=== PATIENT | female | born 1960 | race Caucasian/White ===

== ENCOUNTER 2024-07-31 06:49 | Day surgery (SDC) | payer MEDICAID, OTHER ==
[~2024-07-31] VITALS: Ht 170.2 cm; Wt 88.9 kg
[2024-07-31] MEDS ORDERED: MIDAZOLAM HCL 5 MG/5 ML VIAL ONE (08:03)
[2024-07-31] MEDS ORDERED: MEPERIDINE 100 MG INJ. 100 MG/ML VIAL ONE (08:03)
[2024-07-31] MEDS ORDERED: SIMETHICONE 40 MG/0.6 ML ML ONE (08:04)
[2024-07-31 14:17] VITALS: O2SAT 97
[2024-07-31 17:37] VITALS: BP_SYST 155; PULSE 68; RESP 18
== END 2024-07-31 10:35 | disposition home or self-care (01) ==
LOC: SDS 06:49 → SMU 06:50 → SDS 10:35
PROVIDERS: ATTEND Internal Medicine
DX: Z12.11 Encounter for screening for malignant neoplasm of colon (principal); D12.5 Benign neoplasm of sigmoid colon; K64.8 Other hemorrhoids; E78.5 Hyperlipidemia, unspecified; E11.9 Type 2 diabetes mellitus without complications; I25.10 Atherosclerotic heart disease of native coronary artery without angina pectoris; I50.22 Chronic systolic (congestive) heart failure; Z90.710 Acquired absence of both cervix and uterus; Z90.49 Acquired absence of other specified parts of digestive tract; Z96.653 Presence of artificial knee joint, bilateral; Z79.84 Long term (current) use of oral hypoglycemic drugs; Z79.899 Other long term (current) drug therapy; Z80.0 Family history of malignant neoplasm of digestive organs
CPT/HCPCS: 45380; 99152; 82948; 88305; G0378; J2250; J2175